=== PATIENT | male | born 1965 | race Caucasian/White ===

== ENCOUNTER 2018-02-26 20:52 | Emergency (ER) | payer SELFPAY ==
[~2018-02-26] VITALS: Ht 172.7 cm; Wt 84.8 kg
[2018-02-26 20:55] VITALS: Ht 172.7 cm; Wt 84.8 kg
[2018-02-26 21:33] LABS: BASOPHIL % 0.5 % (0-2); PLATELET COUNT 151 x10^3mcL (130-400); RED CELL DISTRIBUTION WIDTH 13.7 % (11.5-14.5)
[2018-02-26 21:34] LABS: CALCIUM 8.8 mg/dL (8.5-10.1); CARBON DIOXIDE 24.6 mmol/L (21-32); CHLORIDE SERUM 97 mmol/L (98-107); CREATININE SERUM 0.9 mg/dL (0.7-1.3); GFR1 > 60 mL/min; GLUCOSE SERUM 146 mg/dL (74-106); POTASSIUM SERUM 3.2 mmol/L (3.5-5.1); SODIUM SERUM 136 mmol/L (136-145)
[2018-02-26 21:39] LABS: ALBUMIN 3.7 g/dL (3.4-5.0); ALKALINE PHOSPHATASE 125 U/L (46-116); ALT/SGPT 35 U/L (16-63); AST/SGOT 60 U/L (15-37); BILIRUBIN TOTAL 1.83 mg/dL (0.20-1.00)
[2018-02-26 22:25] LABS: AMPHETAMINE QUAL UR NONE DETECTED (See below)
[2018-02-26 23:11] VITALS: BP 120/81
== END 2018-02-26 23:11 | disposition home or self-care (01) ==
LOC: ED 20:52
PROVIDERS: Emergency Medicine
DX: F10.239 Alcohol dependence with withdrawal, unspecified (principal); G40.89 Other seizures
CPT/HCPCS: G0480; J2060